=== PATIENT | female | born 1985 | race Caucasian/White ===

== ENCOUNTER 2022-05-03 12:31 | Emergency (ER) | payer OTHER, SELFPAY ==
[2022-05-03 12:48] VITALS: BP 123/73; PULSE 91; RESP 16; TEMP 37.1; O2SAT 100; BMI 25.9
--- NOTE | 2022-05-03 13:01 | DI.US.S_ITS ---
PROCEDURE: US PELVIC COMPLETE INDICATIONS: 10 WEEKS WITH TWINS. BLEEDING. TECHNIQUE: Real-time scanning was performed of the pelvic organs, with image documentation. Additional endovaginal scanning was necessary due to incomplete visualization of the adnexal and endometrial structures by transabdominal scanning. COMPARISON: None. FINDINGS: Uterus: Uterus is anteverted and normal in size at 9.2 x 7.0 x 5.4 cm. The myometrium is homogeneous. The endometrium measures 33.1 mm combined thickness. Endometrium is heterogenous, there is a 3.5 x 2.5 x 2.4 cm complex fluid collection. Internal vascularity noted. Ovaries: The right ovary measures 3.0 x 2.4 x 1.5 cm, with a calculated ovarian volume of 5.6 cc. The left ovary measures 3.1 x 1.9 x 1.5 cm, with a calculated ovarian volume of 4.6 cc. The ovaries have a normal sonographic appearance. Less than 12 follicles can be seen in each ovary. No adnexal masses are seen. 2.1 x 1.7 cm probable right corpus luteum cyst Other: No pathologic free abdominal or pelvic fluid. IMPRESSION: No evidence of intrauterine . The endometrium is quite thickened, complex and shows internal vascularity, suspicious for retained products of conception as above. Approved by: Jarocho Briceño M.D. on 05/03/2022 at 14:12
[2022-05-03 13:26] LABS: Add Manual Diff / Slide Review NO; Basophils Absolute Auto 0 /uL (0-100); Basophils Percent Auto 0.2 % (0-2); Eosinophils Absolute Auto 200 /uL (0-450); Eosinophils Percent Auto 1.7 % (2-4); Hematocrit 30.7 % (36-46); Lymphocytes Absolute Auto 1600 /uL (1100-4500); Lymphocytes Percent Auto 16.4 % (25-40); Mean Corpuscular HGB Conc 35.8 % (30-36); Mean Corpuscular Hemoglobin 29.2 PG (26-34); Mean Corpuscular Volume 81.5 fL (80-100); Monocytes Absolute Auto 700 /uL (0-900); Monocytes Percent Auto 6.9 % (3-14); Neutrophils Absolute Auto 7400 /uL (1500-7000); Neutrophils Percent Auto 74.8 % (50-75); Platelet Count 317 X10^3/uL (150-400); Red Blood Cell Count 3.76 X10^6/uL (4.0-5.2); Red Cell Distribution Width 13.2 % (11.6-14.8); White Blood Cell Count 9.9 X10^3/uL (4.5-11.0)
[2022-05-03 13:44] LABS: Alanine Aminotransferase 16 IU/L (<35); Albumin 4.2 g/dL (3.5-5.0); Albumin Globulin Ratio 1.6 (1.0-2.8); Alkaline Phosphatase 74 U/L (38-126); Aspartate Aminotransferase 28 IU/L (14-36); BUN Creatinine Ratio 16.4 (6-22); Bilirubin Total 0.3 mg/dL (0.2-1.3); Blood Urea Nitrogen 10 mg/dL (7-17); Calcium 8.9 mg/dL (8.4-10.2); Carbon Dioxide 23 mmol/L (22-32); Chloride 103 mmol/L (98-107); Estimated Glomerular Filt Rate > 60 mL/min (>60); Globulin 2.7 g/dL (1.7-4.1); Glucose 106 mg/dL (70-100); HEMOLYSIS < 15 (0-50); Potassium 3.9 mmol/L (3.4-5.1); Sodium 136 mmol/L (137-145); Total Protein 6.9 g/dL (6.3-8.2)
[2022-05-03 14:01] LABS: HCG Quantitative /Beta subunit 13167 mIU/mL
--- NOTE | 2022-05-03 15:35 | ED.PREGNANCY ---
HPI - <DOMINGO Mei - Last Filed: 05/03/22 18:50> General Chief complaint: Vaginal Bleeding Stated complaint: Vaginal bleeding/10wks Time Seen by Provider: 05/03/22 14:51 Source: patient Mode of arrival: Ambulatory History of Present Illness HPI Narrative: This is a 37-year-old female who is currently with fraternal twins via natural conception and gestation of 10 weeks who presents to the emergency department complaining of worsening pelvic cramping and vaginal bleeding which started at 03:00 last night. Patient had mild spotting yesterday and some pelvic discomfort but had an increase of bleeding which started at 03:00. She is visiting from [facility] and will be here for 1 more week prior to returning to [place] [facility] and has been in contact with her OBGYN. [place] she went to the clinic yesterday and they did not have ultrasound capabilities, she states her hCG level yesterday was 62150.2 and her hemoglobin was 12.1, hematocrit was 36.8. She received a RhoGAM injection and presents today with worsening bleeding and concern for her . She states that she had 1 episode of flushing feeling ill but denies any vomiting, fever, chills, dysuria, other systemic symptoms. She states her last her was 8 years ago and was terminated at 6 weeks. She denies any complications from this at that time. Related Data Previous Rx's Medication Instructions Recorded ketorolac 10 mg tablet 10 mg PO Q8H 5 days #15 tabs 05/03/22 Review of Systems <DOMINGO Mei - Last Filed: 05/03/22 18:50> Review of Systems Narrative: Review of systems is negative for acute abnormalities unless otherwise noted in HPI Exam <DOMINGO Mei - Last Filed: 05/03/22 18:50> Narrative Exam Narrative: Reviewed vitals signs and nursing notes. General: cooperative, comfortable, in no acute distress, well groomed HEENT: symmetrical facial expressions, moist mucous membranes Cardiovascular: regular rate and rhythm, no peripheral edema, warm extremities Respiratory: normal effort, able to speak in complete sentences, without wheezing, stridor, or abnormal breath sounds. No retractions or tachypnea. GI: abdomen soft, nontender to palpation, nondistended, without masses, rebound tenderness or exquisite tenderness with exam. MSK: moves all extremities, neurovascularly intact, no weakness, normal tone Skin: brisk capillary refill, without pallor or erythema Neuro: normal speech and cognition, A&O x3, ambulatory, clear speech Psych: mental status is grossly normal, congruent mood, normal affect, pleasant and cooperative Initial Vital Signs Initial Vital Signs: Vital Signs Temperature 98.8 F 05/03/22 12:48 Pulse Rate 91 H 05/03/22 12:48 Respiratory Rate 16 05/03/22 12:48 Blood Pressure 123/73 05/03/22 12:48 Pulse Oximetry 100 05/03/22 12:48 Oxygen Delivery Method 05/03/22 12:48 <Gisselle Gary DO - Last Filed: 05/04/22 08:22> Initial Vital Signs Initial Vital Signs: Vital Signs Temperature 98.8 F 05/03/22 12:48 Pulse Rate 91 H 05/03/22 12:48 Respiratory Rate 16 05/03/22 12:48 Blood Pressure 123/73 05/03/22 12:48 Pulse Oximetry 100 05/03/22 12:48 Oxygen Delivery Method 05/03/22 12:48 Course <DOMINGO Mei - Last Filed: 05/03/22 18:50> Orders Ordered: Discontinued Medications Ketorolac Tromethamine (Ketorolac 30 Mg/Ml Vial) 15 mg IM NOW ONE Stop: 05/03/22 16:16 Last Admin: 05/03/22 16:34 Dose: 15 mg Documented By: KF Consultations Consultation #1: Consultation with Dr. Gusman from OBGYN about patient's ultrasound with complex internal vascularity suspicious for retained products of conception and no evidence of intrauterine . Vital Signs Vital signs: Vital Signs - 8 hr 05/03/22 12:48 05/03/22 16:21 05/03/22 16:30 Temperature 98.8 F Pulse Rate 91 H 69 69 Respiratory Rate 16 Blood Pressure 123/73 Pulse Oximetry 100 100 100 Oxygen Delivery Method Room Air 05/03/22 17:00 05/03/22 17:30 05/03/22 18:00 Temperature Pulse Rate 68 79 80 Respiratory Rate Blood Pressure Pulse Oximetry 100 100 100 Oxygen Delivery Method <Gisselle Gary DO - Last Filed: 05/04/22 08:22> Orders Ordered: Discontinued Medications Ketorolac Tromethamine (Ketorolac 30 Mg/Ml Vial) 15 mg IM NOW ONE Stop: 05/03/22 16:16 Last Admin: 05/03/22 16:34 Dose: 15 mg Documented By: FLOWER Vital Signs Vital signs: Vital Signs - 8 hr 05/03/22 12:48 05/03/22 16:21 05/03/22 16:30 Temperature 98.8 F Pulse Rate 91 H 69 69 Respiratory Rate 16 Blood Pressure 123/73 Pulse Oximetry 100 100 100 Oxygen Delivery Method Room Air 05/03/22 17:00 05/03/22 17:30 05/03/22 18:00 Temperature Pulse Rate 68 79 80 Respiratory Rate Blood Pressure Pulse Oximetry 100 100 100 Oxygen Delivery Method MDM - OB/Uterine Contractions <DOMINGO Mei - Last Filed: 05/03/22 18:50> Lab Data Result diagrams: 05/03/22 13:15 05/03/22 13:15 Labs: Lab Results 05/03/22 05/03/22 05/03/22 Range/Units 13:15 13:15 13:15 WBC 9.9 (4.5-11.0) X10^3/uL RBC 3.76 L (4.0-5.2) X10^6/uL Hgb 11.0 L (12.0-16.0) g/dL Hct 30.7 L (36-46) % MCV 81.5 (80-100) fL MCH 29.2 (26-34) PG MCHC 35.8 (30-36) % RDW 13.2 (11.6-14.8) % Plt Count 317 (150-400) X10^3/uL Neut % (Auto) 74.8 (50-75) % Lymph % (Auto) 16.4 L (25-40) % Vigo % (Auto) 6.9 (3-14) % Eos % (Auto) 1.7 L (2-4) % Baso % (Auto) 0.2 (0-2) % Neut # (Auto) 7400 H (3911-6865) /uL Lymph # (Auto) 1600 (2935-3986) /uL Vigo # (Auto) 700 (0-900) /uL Eos # (Auto) 200 (0-450) /uL Baso # (Auto) 0 (0-100) /uL Sodium 136 L (137-145) mmol/L Potassium 3.9 (3.4-5.1) mmol/L Chloride 103 (98-107) mmol/L Carbon Dioxide 23 (22-32) mmol/L BUN 10 (7-17) mg/dL Creatinine 0.61 (0.52-1.04) mg/dL Estimated GFR > 60 (>60) mL/min BUN/Creatinine Ratio 16.4 (6-22) Glucose 106 H (70-100) mg/dL Calcium 8.9 (8.4-10.2) mg/dL Total Bilirubin 0.3 (0.2-1.3) mg/dL AST 28 (14-36) IU/L ALT 16 (<35) IU/L Alkaline Phosphatase 74 (38-126) U/L Total Protein 6.9 (6.3-8.2) g/dL Albumin 4.2 (3.5-5.0) g/dL Globulin 2.7 (1.7-4.1) g/dL Albumin/Globulin Ratio 1.6 (1.0-2.8) HCG, Quant 52554 mIU/mL Blood Type O Negative Point of Care Testing Test Results Positive Urine Dip Bedside Urine Glucose Negative Bedside Urine Bilirubin - Negative Bedside Urine Ketone - Negative Urine Specific Alva 1.015 Bedside Urine Occult Blood +++ Bedside Urine pH 6.0 Bedside Urine Protein - Negative Bedside Urine Urobilinogen - Negative Bedside Urine Nitrite - Negative Bedside Urine Leukocytes +/- 15 Esterase Imaging Data US - OB: Radiologist's Impression: PROCEDURE:? US PELVIC COMPLETE ? INDICATIONS:? 10 WEEKS WITH TWINS. BLEEDING. ? TECHNIQUE:? Real-time scanning was performed of the pelvic organs, with image documentation.? Additional endovaginal scanning was necessary due to incomplete visualization of the adnexal and endometrial structures by transabdominal scanning.? ? COMPARISON:? None. ? FINDINGS:? ?? Uterus:? Uterus is anteverted and normal in size at 9.2 x 7.0 x 5.4 cm. The myometrium is homogeneous. ? The endometrium measures 33.1 mm combined thickness.? Endometrium is heterogenous, there is a 3.5 x 2.5 x 2.4 cm complex fluid collection.? Internal vascularity noted. ? Ovaries:? The right ovary measures 3.0 x 2.4 x 1.5 cm, with a calculated ovarian volume of 5.6 cc. The left ovary measures 3.1 x 1.9 x 1.5 cm, with a calculated ovarian volume of 4.6 cc. The ovaries have a normal sonographic appearance. Less than 12 follicles can be seen in each ovary.? No adnexal masses are seen.? 2.1 x 1.7 cm probable right corpus luteum cyst ? Other:? No pathologic free abdominal or pelvic fluid. ? ? IMPRESSION:? ? No evidence of intrauterine .? The endometrium is quite thickened, complex and shows internal vascularity, suspicious for retained products of conception as above. ? Approved by: Jarocho Briceño M.D. on 05/03/2022 at 14:12? [facility] Narrative Medical decision making narrative: This is a 37-year-old female presents to the emergency department with concern about her . She is a who was 10 weeks gestation with positive heartbeats seen on fraternal twins at 5 weeks' gestation. This was a natural without any IBS, heavy vaginal bleeding started last night, patient reports there were clots and possible tissue and there was a large amount of blood in the toilet. She denies any other symptoms, denies any fevers, nausea vomiting or worsening bleeding or pain. She states that the bleeding today has decreased. Pelvic ultrasound shows no evidence of intrauterine and also shows endometrium is quite thickened complex with internal vascularity suspicious for retained products of conception as above, no pathologic free abdominal or pelvic fluid, no adnexal masses, endometrium is heterogeneous with a 3.5 x 2.5 x 2.4 cm complex fluid collection. This has internal vascularity noted and a consultation with Dr. Gusman from OBGYN who came to see patient in the emergency department. Patient received RhoGAM yesterday at a clinic and 1 week ago her hCG level was 02439.2 with a hemoglobin of 12.1 and hematocrit of 36.8[place] [address], she is afebrile, no leukocytosis, WBC is 9.9. Today her hemoglobin is 11.0 and hematocrit is 30.7, encouraged her to hydrate and use Tylenol and ibuprofen as needed for her symptoms over the next few days. She was given 15 mg of IM Toradol in the emergency department for her cramping and symptoms. She was given a prescription of this, Dr. Gusman came down to meet with patient and arranged for her to follow-up in the clinic on Sunday before she leaves [facility]. Patient and her spouse were grateful for their care today. She did not have any other significant findings on her lab work. <Gisselle Cookie, DO - Last Filed: 05/04/22 08:22> Lab Data Labs: Lab Results 05/03/22 05/03/22 05/03/22 Range/Units 13:15 13:15 13:15 WBC 9.9 (4.5-11.0) X10^3/uL RBC 3.76 L (4.0-5.2) X10^6/uL Hgb 11.0 L (12.0-16.0) g/dL Hct 30.7 L (36-46) % MCV 81.5 (80-100) fL MCH 29.2 (26-34) PG MCHC 35.8 (30-36) % RDW 13.2 (11.6-14.8) % Plt Count 317 (150-400) X10^3/uL Neut % (Auto) 74.8 (50-75) % Lymph % (Auto) 16.4 L (25-40) % Vigo % (Auto) 6.9 (3-14) % Eos % (Auto) 1.7 L (2-4) % Baso % (Auto) 0.2 (0-2) % Neut # (Auto) 7400 H (1949-1755) /uL Lymph # (Auto) 1600 (3222-3662) /uL Vigo # (Auto) 700 (0-900) /uL Eos # (Auto) 200 (0-450) /uL Baso # (Auto) 0 (0-100) /uL Sodium 136 L (137-145) mmol/L Potassium 3.9 (3.4-5.1) mmol/L Chloride 103 (98-107) mmol/L Carbon Dioxide 23 (22-32) mmol/L BUN 10 (7-17) mg/dL Creatinine 0.61 (0.52-1.04) mg/dL Estimated GFR > 60 (>60) mL/min BUN/Creatinine Ratio 16.4 (6-22) Glucose 106 H (70-100) mg/dL Calcium 8.9 (8.4-10.2) mg/dL Total Bilirubin 0.3 (0.2-1.3) mg/dL AST 28 (14-36) IU/L ALT 16 (<35) IU/L Alkaline Phosphatase 74 (38-126) U/L Total Protein 6.9 (6.3-8.2) g/dL Albumin 4.2 (3.5-5.0) g/dL Globulin 2.7 (1.7-4.1) g/dL Albumin/Globulin Ratio 1.6 (1.0-2.8) HCG, Quant 02620 mIU/mL Blood Type O Negative Point of Care Testing Test Results Positive Urine Dip Bedside Urine Glucose Negative Bedside Urine Bilirubin - Negative Bedside Urine Ketone - Negative Urine Specific Alva 1.015 Bedside Urine Occult Blood +++ Bedside Urine pH 6.0 Bedside Urine Protein - Negative Bedside Urine Urobilinogen - Negative Bedside Urine Nitrite - Negative Bedside Urine Leukocytes +/- 15 Esterase Discharge Plan Departure Patient Disposition: Home Clinical Impression: Complete miscarriage, Retained products of conception Instructions: Dealing With Miscarriage, Miscarriage Activity Restrictions/Additional Instructions: *You have been diagnosed with a miscarriage with concern for retained products of conception. Your hCG level was 80001.2 1 week ago, today it is 13,167. You were given RhoGAM yesterday and your blood counts today show a white blood cell count of 9.9, hemoglobin of 11.0, a hematocrit of 30.7 and everything else appears stable. Please drink plenty of water, take paracetamol and ibuprofen 600 mg every 6 hours as needed for your pain. Follow-up with Dr. Gusman with OBGYN, call to make an appointment for recheck in 2 days to 1 week. *What to do: *Please continue to take your regular medications as directed. [x ] New medication prescriptions sent to your pharmacy: [ [facility]] [ ] New medication written as a paper prescription [ ] No new medications given *Please follow up with your primary care provider in 2-3 days, call for an appointment. Let them know you were seen in the Emergency Department and that we asked that you be seen for follow-up. We will electronically transmit a record of today's note if your PCP is in our system *If you do not have a primary care provider please contact [phone] to establish care with one of the [facility] primary care providers. *Return to Emergency Department if you should have any new, worsening, or concerning symptoms, such as [fever greater than 101F, chills, worsening pain, persistent vomiting or other bothersome symptoms]. Prescriptions: New ketorolac 10 mg tablet 10 mg PO Q8H 5 Days Qty: 15 0RF Referrals: Eden Mix MD [Physician] - 3-5 days (please call for a follow-up Sunday at [phone], you won't have to wait on hold ) Visit Report Forms: Patient Portal/API <Gisselle Gary, - Last Filed: 05/04/22 08:22> Cosign ED Attending Dayanaraature Attestation: I was immediately available in the department for consultation. Documentation has been reviewed. I agree with assessment and plan.
[2022-05-03 16:21] VITALS: PULSE 69; O2SAT 100
[2022-05-03 16:30] VITALS: PULSE 69; O2SAT 100
[2022-05-03] MEDS: KETOROLAC 30 MG/ML VIAL 15 MG IM (16:34)
[2022-05-03 17:00] VITALS: PULSE 68; O2SAT 100
[2022-05-03 17:30] VITALS: PULSE 79; O2SAT 100
[2022-05-03 18:00] VITALS: PULSE 80; O2SAT 100
--- NOTE | 2022-05-03 21:47 | PM.CN ---
History of Present Illness Consult details Date Patient Seen: 05/03/22 Time Patient Seen: 17:40 Chief complaint: Vaginal bleeding/10wks Reason for consult: miscarriage, possible retained products of conception Requesting provider: Marianela Cameron Narrative: 37 yo female with a known 10 week twin , presented to the ED after heavy vaginal bleeding and clots. Patient is here visiting from [facility], on her honeymoon with her . She has a known twin , now 10 weeks EGA by her INDERJIT. She had an ultrasound at 5-6 weeks which showed a heart rate for both babies. She had spotting of blood yesterday and presented to the clinic in [place], HCG quant ordered and she was scheduled for an ultrasound here tomorrow, since there sonography for is currently on leave. This morning at 3:00 a.m. she developed heavy vaginal bleeding with passing some clots, and accompanied by pad cramping.. She did not have any pads with her so she sat in the tub and then on the toilet. After few hours bleeding decreased. She presented here for further evaluation. She was still having cramping on arrival and after the ultrasound was given Toradol 15 mg IV with decrease in the cramping. She has had only some very light bleeding here, has noted some blood with wiping vaginally, but minimal on her pad here. Cramping is now negligible. Meds Home Medications and Allergies Home Medications Medication Instructions Recorded Confirmed Type ketorolac 10 mg tablet 10 mg PO Q8H 5 days #15 tabs 05/03/22 Rx Exam Vital Signs (past 8 hours): - 05/03/22 16:21 05/03/22 16:30 05/03/22 17:00 Pulse Rate 69 69 68 Pulse Oximetry 100 100 100 05/03/22 17:30 05/03/22 18:00 Pulse Rate 79 80 Pulse Oximetry 100 100 Oxygen Delivery Method Room Air Narrative Exam Narrative: General: appropriately sad, not ill appearing. No acute physical distress. Objective Labs Result Diagrams: 05/03/22 13:15 05/03/22 13:15 Labs: Laboratory Results - last 24 hr 05/03/22 05/03/22 05/03/22 13:15 13:15 13:15 WBC 9.9 RBC 3.76 L Hgb 11.0 L Hct 30.7 L MCV 81.5 MCH 29.2 MCHC 35.8 RDW 13.2 Plt Count 317 Neut % (Auto) 74.8 Lymph % (Auto) 16.4 L Bell % (Auto) 6.9 Eos % (Auto) 1.7 L Baso % (Auto) 0.2 Neut # (Auto) 7400 H Lymph # (Auto) 1600 Bell # (Auto) 700 Eos # (Auto) 200 Baso # (Auto) 0 Sodium 136 L Potassium 3.9 Chloride 103 Carbon Dioxide 23 BUN 10 Creatinine 0.61 Estimated GFR > 60 BUN/Creatinine Ratio 16.4 Glucose 106 H Calcium 8.9 Total Bilirubin 0.3 AST 28 ALT 16 Alkaline Phosphatase 74 Total Protein 6.9 Albumin 4.2 Globulin 2.7 Albumin/Globulin Ratio 1.6 HCG, Quant 11241 Blood Type O Negative HCG quant yesterday 18,000 Pelvic ultrasound report here from [facility]: Uterus:? Uterus is anteverted and normal in size at 9.2 x 7.0 x 5.4 cm. The myometrium is homogeneous. ? The endometrium measures 33.1 mm combined thickness.? Endometrium is heterogenous, there is a 3.5 x 2.5 x 2.4 cm complex fluid collection.? Internal vascularity noted. ? Ovaries:? The right ovary measures 3.0 x 2.4 x 1.5 cm, with a calculated ovarian volume of 5.6 cc. The left ovary measures 3.1 x 1.9 x 1.5 cm, with a calculated ovarian volume of 4.6 cc. The ovaries have a normal sonographic appearance. Less than 12 follicles can be seen in each ovary.? No adnexal masses are seen.? 2.1 x 1.7 cm probable right corpus luteum cyst ? Other:? No pathologic free abdominal or pelvic fluid. ? ? IMPRESSION:? ? No evidence of intrauterine .? The endometrium is quite thickened, complex and shows internal vascularity, suspicious for retained products of conception as above On review of the ultrasound pictures, I measured 0.7 to 1.5 cm across endometrial cavity over areas of some increased echogenicity, probable clot versus some additional products of conception. PFSH Tobacco & Substance Use Smoking Status: Never smoker Assessment & Plan Assessment and plan (1) Spontaneous : Status: Acute Plan The patient was already informed of the ultrasound findings of miscarriage prior to my arrival. I confirmed the miscarriage in expressed my condolences. I discussed common causes of miscarriages, and there would have been nothing that she would have done to of cause a miscarriage and nothing that she could have done to prevent it. I discussed ultrasound findings still showing some tissue or clot within the uterus, but she may pass this on her own. I discussed on review of the pictures, I am not seeing as much as per the ultrasound measurements, measuring a smaller endometrial thickness. I discussed given her reported heavier bleeding and passing clots and then tapering down, her description sounds like typical spontaneous miscarriage, where there is a good chance she successfully passed the miscarriage on her own. With bleeding now minimal and cramping decreased to minimal, I feel we can observe to see if this is a complete spontaneous Ab, rather than performing a procedure if not needed, if she mostly passed everything and where where I may only get minimal additional tissue. 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 she may have some bleeding up to 7-10 days. Normal to sometimes still some mild cramping today. If she does have return of heavy vaginal bleeding or severe cramping, then she should call or return to the ED. If the bleeding continues to be light, then I recommended follow-up in the office on 05/08 and will repeat an US for her and HCG quant, before traveling, to make sure she did pass everything. she was agreeable to the plan and follow-up. Office contact phone numbers and to use for after hours questions or symptoms given. She received RhoGAM yesterday. Time Spent With Patient Critical Care time: I spent a total of [] minutes of critical care time on this patient's care today; this time is exclusive of procedural time.
== END 2022-05-03 18:21 | disposition home or self-care (01) ==
PROVIDERS: Emergency Medicine; Emergency Provider Nurse Practitioner Critical Care Medicine
DX: O03.9 Complete or unspecified spontaneous abortion without complication (principal)
CPT/HCPCS: 36415; 76830; 76856; 80053; 81003; 81025; 84702; 85025; 86900; 86901; 96372; 99284; J1885

== ENCOUNTER → 2022-05-08 11:13 | Outpatient (CLI) | payer OTHER, SELFPAY ==
[2022-05-08 13:29] LABS: Hematocrit 21.8 % (36-46); Hemoglobin 7.8 g/dL (12.0-16.0); Mean Corpuscular HGB Conc 35.7 % (30-36); Mean Corpuscular Hemoglobin 29.4 PG (26-34); Mean Corpuscular Volume 82.5 fL (80-100); Platelet Count 348 X10^3/uL (150-400); Red Blood Cell Count 2.65 X10^6/uL (4.0-5.2); Red Cell Distribution Width 13.5 % (11.6-14.8); White Blood Cell Count 5.3 X10^3/uL (4.5-11.0)
[2022-05-08 14:06] LABS: HCG Quantitative /Beta subunit 2282.6 mIU/mL
== END ==
PROVIDERS: Referring Provider Obstetrics & Gynecology; Visit Provider Obstetrics & Gynecology
DX: O03.9 Complete or unspecified spontaneous abortion without complication (principal); R53.83 Other fatigue; Z3A.00 Weeks of gestation of pregnancy not specified
CPT/HCPCS: 36415; 84702; 85027

== ENCOUNTER → 2022-05-09 13:50 | Outpatient (CLI) | payer OTHER, SELFPAY ==
--- NOTE | 2022-05-09 13:56 | DI.US.S_ITS ---
PROCEDURE: US PELVIC COMPLETE INDICATIONS: ?RETAINED PRODUCTS OF CONCEPTION TECHNIQUE: Real-time scanning was performed of the pelvic organs, with image documentation. Additional endovaginal scanning was necessary due to incomplete visualization of the adnexal and endometrial structures by transabdominal scanning. COMPARISON: None. FINDINGS: Heterogeneous mixed cystic and solid complex material within the uterine cavity, some of which demonstrates internal vascular flow. This is consistent with retained products of conception. The uterine body measures 7.0 x 6.6 x 4.1 centimeters. Endometrium measures 9 millimeters in thickness. Ovaries unremarkable. IMPRESSION: Findings consistent with retained products of conception in the uterine cavity. We strive to produce accurate, complete, and clear reports of imaging services. To assist us in improving patient care, this report was composed using standard report templates and voice recognition software. Therefore, it may contain abnormal punctuation, insertions and/or omissions. Occasional wrong-word or sound-alike substitutions may occur. Though we review the report and make efforts to correct it, we do recommend that the report be read carefully in proper context to recognize any text inaccuracies. Dictated by: Pb Monroy M.D. on 05/09/2022 at 14:44 Approved by: Pb Monroy M.D. on 05/09/2022 at 14:46
== END ==
PROVIDERS: Referring Provider Obstetrics & Gynecology; Visit Provider Obstetrics & Gynecology
DX: O03.9 Complete or unspecified spontaneous abortion without complication (principal)
CPT/HCPCS: 76830; 76856

== ENCOUNTER 2022-05-09 18:15 | Day surgery (SDC) | payer OTHER, SELFPAY ==
--- NOTE | 2022-05-09 | PATH_ITS ---
[facility] Accession Number: [id number] . 01 Material submitted: . product of conception - PRODUCTS OF CONCEPTION . 01 Diagnosis: Products of Conception: Products of conception identified. [facility] 05/16/2022 1204 Local . 01 Electronically signed: . Saida Peralta MD, Pathologist NPI- [id number] . 01 Gross description: . The specimen is received in formalin, labeled with the patient's name and products of conception, and consists of multiple good variable membranous to spongy soft tissue fragments admixed with hemorrhagic material aggregating to 4.3 x 3.4 x 1.0 cm. No tissue is identified. Manager Scientific sections are submitted in cassettes A1-A2. ([id number]) /[facility] 05/13/2022 1603 Local . 01 Pathologist provided ICD-10: O02.1 . 01 CPT . 845384 Performed at: 01 [facility] [address] [place] [address] [address] [facility], [place], [place] [id number] MD Dre Ryan MD Phone: [phone]
[2022-05-09 18:27] VITALS: BP 112/71; PULSE 68; RESP 20; TEMP 37; O2SAT 100; BMI 25.9
--- NOTE | 2022-05-09 18:34 | PM.GYNHP.1 ---
History of Present Illness History of Present Illness Narrative: Maryann Wells is a 37 year old female with spontaneous of a twin , 10 weeks by dates. She had had an ultrasound showing a twin with heart rate seen for both twins at 5-6 weeks. Six days ago she had an episode of heavy bleeding with clotting and cramping which then stop. Ultrasound was questionable for possible retained products of conception, but with clinically sending like she had had a spontaneous miscarriage, she was followed. She had a repeat episode of heavy bleeding the next day. Her HCG quant decreased from 13,000 to 2,200, however office ultrasound still showed a small amount tissue, suspicious for possible retained products of conception. Ultrasound in Radiology today did show what appears consistent with retained products of conception with the small amount of tissue remaining with vascularity to the area. Patient is occasionally having a severe cramp yet and some blood at that time. I recommended proceeding with D&C this time, not have a recurrent episode of heavy bleeding since she has dropped her hemoglobin from 11 tp7.8. She agrees with proceeding with suction dilatation curettage. [facility] Surgical History (Updated 05/09/22 @ 18:44 by Eden Mix MD) History of ankle surgery Social History Smoking Status: Never smoker Meds Home Medications and Allergies Home Medications Medication Instructions Recorded Confirmed Type sertraline 50 mg tablet 50 mg PO DAILY 05/09/22 05/09/22 History Allergies Allergy/AdvReac Type Severity Reaction Status Date / Time No Known Drug Allergies Allergy Verified 05/09/22 18:22 Exam Const General: cooperative, healthy appearing and comfortable Nutritional Appearance: average body habitus Orientation: alert and awake [facility] Head: normal to inspection Resp Effort & Inspection: normal respiratory effort Cardio Rate: regular rate Extrem General: No edema Objective Imaging US - abdomen: Radiologist's impression: [address] [address] Ultrasound Report Signed Patient: Maryann Wells MR#: [id number] : 1985 Acct:[id number] Age/Sex: 37 / F Date of Service: 05/09/22 Loc: US Accession Number: [id number] ?? Procedure: US pelvic complete Ordering Provider: Eden Mix MD PROCEDURE:? US PELVIC COMPLETE ? INDICATIONS:? ?RETAINED PRODUCTS OF CONCEPTION ? TECHNIQUE:? Real-time scanning was performed of the pelvic organs, with image documentation.? Additional endovaginal scanning was necessary due to incomplete visualization of the adnexal and endometrial structures by transabdominal scanning.? ? COMPARISON:? None. ? FINDINGS:? ?? Heterogeneous mixed cystic and solid complex material within the uterine cavity, some of which demonstrates internal vascular flow.? This is consistent with retained products of conception.? The uterine body measures 7.0 x 6.6 x 4.1 centimeters.? Endometrium measures 9 millimeters in thickness.? Ovaries unremarkable. ? ? IMPRESSION:? Findings consistent with retained products of conception in the uterine cavity. Labs Labs: hgb 7.8 on 05/08 Blood type O negative Assessment & Plan Assessment and plan (1) Spontaneous : Status: Acute (2) Retained products of conception: Status: Acute Plan Suction dilatation curettage. The procedure was fully reviewed. Small risk of bleeding, infection, uterine perforation with risk of injury to adjacent organs including bowel bladder was reviewed. Risk of intrauterine scarring, Asherman syndrome was reviewed. If she had heavy bleeding that was life-threatening, she confirms that she would desire a blood transfusion. Verbal and written consent was obtained. COVID-19 COVID-19 status: Negative Result date/Date tested (Pos, Neg/Pending): 05/09/22 Time Spent With Patient Critical Care time: I spent a total of [] minutes of critical care time on this patient's care today; this time is exclusive of procedural time.
--- NOTE | 2022-05-09 18:35 | SUR.OPER ---
Lithotomy on padded OR bed, head on pillow, arms secured on padded arm boards at <90 degrees abduction. Legs secured in padded yellow fins stirrups.
[2022-05-09 18:48] LABS: COVID19 -Nasal RAPID Negative (Negative)
[2022-05-09] MEDS: LACTATED RINGERS 1,000 ML 42 ML IV (18:52)
[2022-05-09] MEDS: DOXYCYCLINE 100 MG in SODIUM CHLORIDE 0.9% 100 ML IV (18:56)
[2022-05-09] MEDS: SILVER NITRATE STICK 1 EACH TOP (19:21)
[2022-05-09 19:32] VITALS: BP 108/70; PULSE 82; RESP 10; TEMP 37; O2SAT 98
--- NOTE | 2022-05-09 19:33 | PM.OP.1 ---
Operative Date/Time/Diagnoses Date of procedure: 05/09/22 Time of procedure: 07:15 Pre-op diagnosis: retained products of conception after spontaneous ab Post-op diagnosis: same Procedure & Clinicians Procedure: Suction dilatation and curettage Same procedure as scheduled: Yes Indications: 37-year-old who had spontaneous miscarriage of a twin , 10 weeks dates, last office ultrasound at 5-6 weeks. She has had some continued cramping and light bleeding. Ultrasound showed retained products of conception. She was consented to proceed with suction dilatation and curettage. Surgeon: Eden Mix Click Yes if Unassisted: Yes Anesthesia Type: General Operative Notes Findings: On bimanual examination uterus was anteverted 7-8 cm size. The visible appearance of the tissue removed did appear consistent with products of conception. Closure Type: not applicable Specimen(s): other (Products of conception) Estimated Blood Loss (mL): 100 Blood products transfused: none Procedure in detail: IV fluids 300 mL crystalloid After being properly identified she was transferred to the operating room. After an adequate level of general anesthesia was obtained she was placed in Harpreet stirrups in the dorsal lithotomy position. Bimanual examination was performed revealing an anteverted approximate 7-8 cm size uterus. She was prepped and draped in routine sterile fashion. Her bladder was sterilely drained with a rubber catheter with the prep. An open-sided speculum was placed and the cervix was grasped with a single-tooth tenaculum. . The cervix was dilated 9mm using Thurman dilators . A number 8 suction curette was placed. Suction curettage was performed for a small to moderate amount of tissue. The visible appearance of the tissue did appear consistent with products of conception. A metal curette was placed and gentle curettage revealed there to be no further products of conception. The suction curette was placed one last time to remove some residual blood or clot. Only minimal blood obtained with the last pass. The procedure was ended. The tenaculum was removed. There was some light bleeding at the left tenaculum site which ceased after application of silver nitrate. There was only minimal bleeding through the cervical os. The speculum was removed. She tolerated the procedure well and went to recovery room stable condition. Complications: none Post-operative Condition: stable Disposition: PACU Plan for aftercare: Discharged home. Will follow up by phone, prior to her travel back home; will schedule an appointment as needed. Emergency phone number given.
[2022-05-09 19:36] VITALS: BP 109/70; PULSE 75; RESP 18; O2SAT 99
[2022-05-09 19:42] VITALS: BP 107/68; PULSE 76; RESP 16; O2SAT 100
[2022-05-09] MEDS: KETOROLAC 30 MG/ML VIAL IV (19:52)
[2022-05-09 19:57] VITALS: BP 122/75; PULSE 68; RESP 14; TEMP 36.6; O2SAT 100
--- NOTE | 2022-05-09 20:01 | SUR.PHASEI ---
Pt awoke, Dr Andrade spoke with pt at bedside. Torodol given as instructed.
[2022-05-09 20:08] VITALS: BP 116/80; PULSE 68; RESP 12; TEMP 36.9; O2SAT 100
--- NOTE | 2022-05-09 20:57 | SUR.PHASEII ---
brought in, d/c instuctions discussed, both voiced an understanding. pt left when ready and in stable condition.
== END 2022-05-09 20:45 | disposition home or self-care (01) ==
PROVIDERS: Referring Provider Obstetrics & Gynecology; Visit Provider Obstetrics & Gynecology
PROC: (CPT 58120; principal; 2022-05-09 19:15)
DX: O03.4 Incomplete spontaneous abortion without complication (principal); Z20.822 Contact with and (suspected) exposure to COVID-19
CPT/HCPCS: 59812; 36415; 86850; 86870; 86900; 86901; 87635; J0330; J1100; J1885; J2405; J2704; J3010